=== PATIENT | male | born 1965 | race Caucasian/White ===

== ENCOUNTER → 2017-05-30 | Outpatient (CLI) | payer BC, OTHER | LOC: M EKG 13:15 | DX: I49.9 Cardiac arrhythmia, unspecified (principal) | CPT/HCPCS: 93226 ==

== ENCOUNTER 2022-10-25 11:24 | Inpatient (IN) | payer BC, MEDICAID, OTHER ==
[2022-10-25] VITALS (9 sets, daily range): BP systolic 115–149; BP diastolic 63–98; TEMP 98.1–100.4; O2SAT 92–99
[~2022-10-25] VITALS: Ht 170.2 cm; Wt 77.9 kg
[2022-10-25] MEDS ORDERED: MOM 30ML SUSPENSION UDC PO PRN (13:10)
[2022-10-25] MEDS ORDERED: MAALOX 30 ML SUSP *UDC PO PRN (13:10)
[2022-10-25] MEDS ORDERED: ACETAMINOPHEN TAB 650MG DOSE (2X325MG) PO PRN (13:10)
[2022-10-25] MEDS ORDERED: LORazepam 2 MG TAB PO PRN (13:30)
[2022-10-25] MEDS ORDERED: METO1TAB32 PO (13:35)
[2022-10-25] MEDS ORDERED: OMEP40CA5 PO (13:35)
[2022-10-25] MEDS ORDERED: HYDR50TAB PO (13:35)
[2022-10-25] MEDS ORDERED: HOME MED LIST COMPLETE! XX SCH (13:35)
[2022-10-25] MEDS ORDERED: CITA20TA6 PO (13:35)
[2022-10-25 13:42] LABS: BASO # 0.1 10^3/uL (0.0-0.2); BASO % 0.8 % (0.0-1.0); EOS # 0.1 10^3/uL (0.0-0.5); EOS % 0.8 % (0.0-3.0); HEMATOCRIT 38.6 % (42.0-52.0); LYMPH # 1.4 10^3/uL (1.5-5.0); LYMPH % 16.8 % (24.0-44.0); MEAN CORPUSCULAR HEMOGLOBIN 35.1 pg (27.0-33.0); MEAN CORPUSCULAR HGB CONC 36.3 g/dl (32.0-36.5); MEAN CORPUSCULAR VOLUME 96.7 fl (80.0-96.0); MONO # 1.1 10^3/uL (0.0-0.8); MONO % 13.3 % (2.0-8.0); NEUTROPHILS # 5.7 10^3/uL (1.5-8.5); NEUTROPHILS % 67.9 % (36.0-66.0); PLATELET COUNT, AUTOMATED 148 10^3/uL (150-450); RED BLOOD COUNT 3.99 10^6/uL (4.30-6.10); WHITE BLOOD COUNT 8.5 10^3/uL (4.0-10.0)
[2022-10-25] MEDS: HEPARIN SOD (PORCINE) 5000UNITS/ML 1ML VIAL/SYRINGE SC SCH ×2 (14:00→21:26)
[2022-10-25 14:29] LABS: HEPATITIS B SURFACE ANTIGEN NEGATIVE (NEGATIVE)
[2022-10-25] MEDS: THIAMINE 100 MG TAB PO SCH ×2 (14:39→21:26)
[2022-10-25 14:51] LABS: HEPATITIS B CORE ANTIBODY IGM NEGATIVE (NEGATIVE); HEPATITIS C VIRUS ABY INDEX 0.13 INDEX (<0.8)
[2022-10-25] MEDS ORDERED: LIDOCAINE 1% MDV 20ML VIAL As Ordered ONE (14:55)
[2022-10-25 15:20] LABS: ALBUMIN 2.7 G/DL (3.2-5.2); ALKALINE PHOSPHATASE 64 U/L (46-116); ALT/SGPT 14 U/L (7.0-40); AMYLASE 40 U/L (30-118); AST/SGOT 41 U/L (<34); BILIRUBIN,TOTAL 2.7 MG/DL (0.3-1.2); BLOOD UREA NITROGEN 5 MG/DL (9-23); CALCIUM LEVEL 8.6 MG/DL (8.5-10.1); CARBON DIOXIDE LEVEL 26 MMOL/L (20-31); CHLORIDE LEVEL 102 MMOL/L (98-107); GLOMERULAR FILTRATION RATE > 60.0 (>56); GLUCOSE, FASTING 104 MG/DL (60-100); HEPATITIS B SURFACE ANTIBODY NEGATIVE (POSITIVE); LIPASE 23 U/L (12-53); MAGNESIUM LEVEL 1.3 MG/DL (1.8-2.4); PHOSPHORUS LEVEL 2.3 MG/DL (2.5-4.9); POTASSIUM SERUM 2.9 MMOL/L (3.5-5.1); SODIUM LEVEL 134 MMOL/L (136-145); TOTAL PROTEIN 7.8 G/DL (5.7-8.2)
[2022-10-25] MEDS ORDERED: POTASSIUM CHLORIDE 10MEQ SR TABLET PO ONE ×2 (15:25→20:00)
[2022-10-25] MEDS: CitaloPRAM (CeleXA) 20 MG TAB PO SCH (15:51)
[2022-10-25] MEDS: MULTIVITAMINS/MINERALS THERAP 1 TAB PO SCH (15:52)
[2022-10-25] MEDS: FOLIC ACID 1MG TAB PO SCH (15:52)
[2022-10-25] MEDS: OMEPRAZOLE 20MG CAP PO SCH (15:52)
[2022-10-25] MEDS: MAG SULF 1GM/100ML (MAG RUN) 1 GM in IV 1 EA IV SCH ×3 (17:21→19:33)
[2022-10-25 17:54] LABS: APPEARANCE, BODY FLUID HAZY (CLEAR); PERITONEAL FL COLOR YELLOW (COLORLESS); SOURCE, BODY FLUID PERITONEAL
[2022-10-25 18:19] LABS: SOURCE, BODY FLUID ALBUMIN PERITONEAL
[2022-10-25 18:24] LABS: SOURCE, BODY FLUID GLUCOSE PERITONEAL
[2022-10-25 18:26] LABS: SOURCE, BODY FLUID TOT PROTEIN PERITONEAL; TOTAL PROTEIN, BODY FLUID 2.5 G/DL (NOT ESTABLISHED)
[2022-10-25] MEDS ORDERED: SODIUM PHOSPHATE INJ 30 MMOL in D5W 500 ML IV ONE (19:00)
[2022-10-25] MEDS ORDERED: oxyCODONE 5MG TAB PO ONE (20:50)
[2022-10-25] MEDS ORDERED: DOCUSATE SODIUM 100MG CAPSULE PO SCH (21:00)
[2022-10-25] MEDS: RAMELTEON 8 MG TAB (ROZEREM) PO PRN (21:23)
[2022-10-25] MEDS: NICOTINE 14 MG/24 HR TRANSDERMAL TD PRN (21:26)
[2022-10-25 23:12] LABS: BASO # 0.1 10^3/uL (0.0-0.2); BASO % 0.8 % (0.0-1.0); EOS # 0.1 10^3/uL (0.0-0.5); EOS % 1.2 % (0.0-3.0); HEMATOCRIT 32.2 % (42.0-52.0); LYMPH # 1.4 10^3/uL (1.5-5.0); LYMPH % 15.9 % (24.0-44.0); MEAN CORPUSCULAR HEMOGLOBIN 35.2 pg (27.0-33.0); MEAN CORPUSCULAR VOLUME 97.6 fl (80.0-96.0); MONO # 1.5 10^3/uL (0.0-0.8); NEUTROPHILS # 5.6 10^3/uL (1.5-8.5); NEUTROPHILS % 64.4 % (36.0-66.0); PLATELET COUNT, AUTOMATED 137 10^3/uL (150-450); WHITE BLOOD COUNT 8.7 10^3/uL (4.0-10.0)
[2022-10-25 23:12] LABS: CHLORIDE,RANDOM URINE 19.99999 MMOL/L; CREATININE,RANDOM URINE 282.7 MG/DL; SODIUM,RANDOM URINE < 10 MMOL/L
[2022-10-25 23:36] LABS: HEMOGLOBIN 11.6 g/dl (13.5-17.5)
[2022-10-26] VITALS (9 sets, daily range): BP systolic 99–118; BP diastolic 55–68; TEMP 98.1–98.6; O2SAT 92–96
[2022-10-26 01:00] LABS: BLOOD UREA NITROGEN 5 MG/DL (9-23); CALCIUM LEVEL 8.3 MG/DL (8.5-10.1); CARBON DIOXIDE LEVEL 25 MMOL/L (20-31); CHLORIDE LEVEL 104 MMOL/L (98-107); CREATININE FOR GFR 0.74 MG/DL (0.70-1.30); GLOMERULAR FILTRATION RATE > 60.0 (>56); GLUCOSE, FASTING 140 MG/DL (60-100); POTASSIUM SERUM 3.1 MMOL/L (3.5-5.1); SODIUM LEVEL 133 MMOL/L (136-145)
[2022-10-26] MEDS ORDERED: LIDOCAINE 5% (LIDODERM) PATCH TD PRN (01:50)
[2022-10-26 02:27] LABS: HEMATOCRIT 31.3 % (42.0-52.0); HEMOGLOBIN 11.4 g/dl (13.5-17.5)
[2022-10-26 02:57] LABS: MAGNESIUM LEVEL 1.7 MG/DL (1.8-2.4); PHOSPHORUS LEVEL 4.6 MG/DL (2.5-4.9)
[2022-10-26] MEDS ORDERED: POTASSIUM CHLORIDE 10MEQ SR TABLET PO ONE ×2 (03:00→07:30)
[2022-10-26] MEDS ORDERED: oxyCODONE 5MG TAB PO ONE (03:00)
[2022-10-26] MEDS: MAG SULF 1GM/100ML (MAG RUN) 1 GM in IV 1 EA IV SCH ×2 (03:50→04:55)
[2022-10-26] MEDS ORDERED: PANTOPRAZOLE 40MG VIAL IV ONE (04:00)
[2022-10-26] MEDS: HEPARIN SOD (PORCINE) 5000UNITS/ML 1ML VIAL/SYRINGE SC SCH ×3 (04:55→22:00)
[2022-10-26 06:08] LABS: BASO # 0.1 10^3/uL (0.0-0.2); BASO % 1.2 % (0.0-1.0); EOS # 0.1 10^3/uL (0.0-0.5); EOS % 1.5 % (0.0-3.0); HEMATOCRIT 33.3 % (42.0-52.0); HEMOGLOBIN 11.8 g/dl (13.5-17.5); LYMPH # 1.4 10^3/uL (1.5-5.0); LYMPH % 21.2 % (24.0-44.0); MEAN CORPUSCULAR HEMOGLOBIN 35.1 pg (27.0-33.0); MEAN CORPUSCULAR HGB CONC 35.4 g/dl (32.0-36.5); MEAN CORPUSCULAR VOLUME 99.1 fl (80.0-96.0); MONO % 15.3 % (2.0-8.0); NEUTROPHILS # 4.1 10^3/uL (1.5-8.5); NEUTROPHILS % 60.4 % (36.0-66.0); PLATELET COUNT, AUTOMATED 125 10^3/uL (150-450); RED BLOOD COUNT 3.36 10^6/uL (4.30-6.10); WHITE BLOOD COUNT 6.8 10^3/uL (4.0-10.0)
[2022-10-26 06:53] LABS: ALBUMIN 2.8 G/DL (3.2-5.2); ALKALINE PHOSPHATASE 41 U/L (46-116); ALT/SGPT 10 U/L (7.0-40); AST/SGOT 22 U/L (<34); BILIRUBIN,TOTAL 3.4 MG/DL (0.3-1.2); BLOOD UREA NITROGEN 5 MG/DL (9-23); CALCIUM LEVEL 8.8 MG/DL (8.5-10.1); CARBON DIOXIDE LEVEL 25 MMOL/L (20-31); CHLORIDE LEVEL 103 MMOL/L (98-107); CREATININE FOR GFR 0.71 MG/DL (0.70-1.30); GLOMERULAR FILTRATION RATE > 60.0 (>56); GLUCOSE, FASTING 112 MG/DL (60-100); MAGNESIUM LEVEL 2.1 MG/DL (1.8-2.4); POTASSIUM SERUM 3.2 MMOL/L (3.5-5.1); SODIUM LEVEL 134 MMOL/L (136-145); TOTAL PROTEIN 6.4 G/DL (5.7-8.2)
[2022-10-26] MEDS: OMEPRAZOLE 20MG CAP PO SCH (09:25)
[2022-10-26] MEDS: MULTIVITAMINS/MINERALS THERAP 1 TAB PO SCH (09:25)
[2022-10-26] MEDS: FOLIC ACID 1MG TAB PO SCH (09:26)
[2022-10-26] MEDS: THIAMINE 100 MG TAB PO SCH ×2 (09:26→22:00)
[2022-10-26] MEDS: CitaloPRAM (CeleXA) 20 MG TAB PO SCH (09:26)
[2022-10-26 09:50] LABS: INR 1.72; PROTHROMBIN TIME 20.5 SECONDS (12.5-14.5)
[2022-10-26 12:28] LABS: HEMATOCRIT 35.1 % (42.0-52.0); HEMOGLOBIN 12.3 g/dl (13.5-17.5)
[2022-10-26] MEDS ORDERED: traMADol 50 MG TAB PO ONE (15:00)
[2022-10-26] MEDS ORDERED: PILL CUTTER 1 EACH XX PRN (15:15)
[2022-10-26 19:13] LABS: HEMATOCRIT 34.1 % (42.0-52.0); HEMOGLOBIN 12.1 g/dl (13.5-17.5)
[2022-10-26] MEDS: RAMELTEON 8 MG TAB (ROZEREM) PO PRN (22:00)
[2022-10-26] MEDS: NICOTINE 14 MG/24 HR TRANSDERMAL TD PRN (22:01)
[2022-10-26] MEDS: oxyCODONE 5MG TAB PO PRN (23:02)
[2022-10-27 00:51] LABS: HEMATOCRIT 32.1 % (42.0-52.0); HEMOGLOBIN 11.4 g/dl (13.5-17.5)
[2022-10-27] MEDS: oxyCODONE 5MG TAB PO PRN ×2 (05:10→13:34)
[2022-10-27] MEDS: HEPARIN SOD (PORCINE) 5000UNITS/ML 1ML VIAL/SYRINGE SC SCH ×2 (05:25→14:00)
[2022-10-27 05:43] VITALS: BP 111/67; TEMP 97.4; O2SAT 96
[2022-10-27 06:00] VITALS: BP 111/67
[2022-10-27 06:04] LABS: BASO # 0.1 10^3/uL (0.0-0.2); BASO % 0.8 % (0.0-1.0); EOS # 0.2 10^3/uL (0.0-0.5); EOS % 2.2 % (0.0-3.0); HEMATOCRIT 33.4 % (42.0-52.0); HEMOGLOBIN 11.6 g/dl (13.5-17.5); LYMPH # 1.6 10^3/uL (1.5-5.0); LYMPH % 20.2 % (24.0-44.0); MEAN CORPUSCULAR HEMOGLOBIN 34.4 pg (27.0-33.0); MEAN CORPUSCULAR HGB CONC 34.7 g/dl (32.0-36.5); MEAN CORPUSCULAR VOLUME 99.1 fl (80.0-96.0); MONO # 1.1 10^3/uL (0.0-0.8); MONO % 14.1 % (2.0-8.0); NEUTROPHILS # 4.8 10^3/uL (1.5-8.5); NEUTROPHILS % 62.3 % (36.0-66.0); PLATELET COUNT, AUTOMATED 120 10^3/uL (150-450); RED BLOOD COUNT 3.37 10^6/uL (4.30-6.10); WHITE BLOOD COUNT 7.7 10^3/uL (4.0-10.0)
[2022-10-27 06:22] LABS: ALBUMIN 2.5 G/DL (3.2-5.2); ALKALINE PHOSPHATASE 54 U/L (46-116); ALT/SGPT 11 U/L (7.0-40); AST/SGOT 25 U/L (<34); BILIRUBIN,TOTAL 2.2 MG/DL (0.3-1.2); BLOOD UREA NITROGEN 7 MG/DL (9-23); CALCIUM LEVEL 8.8 MG/DL (8.5-10.1); CARBON DIOXIDE LEVEL 25 MMOL/L (20-31); CHLORIDE LEVEL 104 MMOL/L (98-107); CREATININE FOR GFR 0.71 MG/DL (0.70-1.30); GLOMERULAR FILTRATION RATE > 60.0 (>56); GLUCOSE, FASTING 97 MG/DL (60-100); MAGNESIUM LEVEL 1.5 MG/DL (1.8-2.4); POTASSIUM SERUM 3.7 MMOL/L (3.5-5.1); SODIUM LEVEL 134 MMOL/L (136-145)
[2022-10-27] MEDS: FOLIC ACID 1MG TAB PO SCH (07:57)
[2022-10-27] MEDS: CitaloPRAM (CeleXA) 20 MG TAB PO SCH (07:57)
[2022-10-27] MEDS: MULTIVITAMINS/MINERALS THERAP 1 TAB PO SCH (07:57)
[2022-10-27] MEDS: MAG SULF 1GM/100ML (MAG RUN) 1 GM in IV 1 EA IV SCH ×3 (07:57→10:37)
[2022-10-27] MEDS: THIAMINE 100 MG TAB PO SCH (07:57)
[2022-10-27] MEDS: OMEPRAZOLE 20MG CAP PO SCH (07:57)
[2022-10-27] MEDS ORDERED: FOLI1TAB11 PO (10:00)
[2022-10-27] MEDS ORDERED: THIA100TA PO (10:00)
[2022-10-27] MEDS ORDERED: OXYC-517 PO ×2 (10:00→10:06)
[2022-10-27] MEDS ORDERED: SPIR50TA4 PO (10:00)
[2022-10-27] MEDS ORDERED: FURO20TA2 PO (10:01)
[2022-10-27] MEDS ORDERED: METO1TAB32 PO (10:04)
[2022-10-27 11:00] VITALS: BP 114/69; TEMP 98.6; O2SAT 95
[2022-10-27 11:48] VITALS: BP 118/69
[2022-10-27 14:00] VITALS: BP 116/66
[2022-10-27 15:09] LABS: ANTI DOUBLE STRAND-DNA AB <1 IU/mL (0-9); ANTINUCLEAR ANTIBODIES DIRECT Positive (Negative); SJOGREN'S ANTI SS-A <0.2 AI (0.0-0.9); SJOGREN'S ANTI SS-B <0.2 AI (0.0-0.9); SMITH ANTIBODIES <0.2 AI (0.0-0.9)
== END 2022-10-27 15:12 | disposition home or self-care (01) | DRG 280 ==
LOC: M MSPAV 12:31
PROVIDERS: ADMIT Internal Medicine Nephrology; ATTEND Internal Medicine
PROC: 0W9G3ZZ Drainage of Peritoneal Cavity, Percutaneous Approach (ICD-10-PCS; principal; 2022-10-25 15:15)
DX: K70.31 Alcoholic cirrhosis of liver with ascites (principal); I10 Essential (primary) hypertension; F32.A Depression, unspecified; B35.1 Tinea unguium; F17.200 Nicotine dependence, unspecified, uncomplicated; K21.9 Gastro-esophageal reflux disease without esophagitis; E87.6 Hypokalemia; Z79.899 Other long term (current) drug therapy; F41.9 Anxiety disorder, unspecified